=== PATIENT | female | born 1995 | race Caucasian/White ===

== ENCOUNTER → 2018-01-07 08:17 | Outpatient (POV) | payer BC, SELFPAY | PROVIDERS: Family Provider Family Medicine; PCP Family Medicine; Visit Provider Specialist | DX: R20.2 Paresthesia of skin (principal) | CPT/HCPCS: 95886; 95908 ==

== ENCOUNTER → 2018-10-07 10:08 | Outpatient (CLI) | payer BC, SELFPAY ==
--- NOTE | 2018-10-07 10:13 | US_ITS ---
US breast LT complete INDICATION: Intermittent nipple inversion with breast pain ORDERING PHYSICIAN: Mery Valdez PATIENT AGE: 22 years COMPARISON: None TECHNIQUE: Ultrasound of left breast completely with axilla FINDINGS: No cystic or solid lesions. There are a few small axillary nodes. IMPRESSION: No nodules apparent BI-RADS Category: 1 Negative Follow up suggested as clinically warranted. A- ultrasound does not exclude the possibility of malignancy. Any palpable nodule should be managed on a clinical basis (A letter has been sent to the patient regarding results of the study.)
== END ==
PROVIDERS: PCP Nurse Practitioner Family; Visit Provider Nurse Practitioner Family
DX: N64.4 Mastodynia (principal); N64.59 Other signs and symptoms in breast
CPT/HCPCS: 76641

== ENCOUNTER 2019-02-28 13:36 | Emergency (ER) | payer BC, SELFPAY ==
[2019-02-28 13:54] VITALS: BP 111/62; PULSE 60; RESP 18; TEMP 36.8; O2SAT 96; BMI 38.0
[2019-02-28 14:10] VITALS: BP 111/62; PULSE 60; RESP 18; TEMP 36.8; O2SAT 96; BMI 38.0
--- NOTE | 2019-02-28 14:18 | US_ITS ---
US gallbladder HISTORY: Abdominal pain with nausea ITS.REASON: pain ORDERING PHYSICIAN: Kwame Carlson MD PATIENT AGE: 23 years Comparison: 10/25/2016 FINDINGS: PANCREAS: Unremarkable. No obvious mass or abnormal fluid collection. No ductal dilatation LIVER: No focal liver lesions demonstrated. Homogeneous echogenicity. No intrahepatic biliary ductal dilatation evident RIGHT KIDNEY: Unremarkable. Normal size and echogenicity. No hydronephrosis GALLBLADDER: No gallstones, gallbladder wall thickening, pericholecystic fluid, or biliary dilatation. IMPRESSION: Negative gallbladder/right upper quadrant ultrasound
[2019-02-28 14:25] LABS: Microscopic, Urine URINE MICROSCOPIC (MICROSCOPIC)
[2019-02-28 14:34] LABS: Appearance,Urine CLEAR (Clear); Bilirubin,Urine Negative (Negative); Blood, Urine Negative (Negative); Color,Urine YELLOW (Yellow); Glucose,Urine (UA) Negative (Negative); Ketones,Urine Negative (Negative); Leukocyte Esterase,Urine 1+ (Negative); Nitrate,Urine Negative (Negative); PH,Urine 6.5 (5.0-8.5); Protein,Urine Negative (Negative); Specific Gravity, Urine 1.015 (1.005-1.030); Urobilinogen,Urine 0.2 EU/dl (0.2)
--- NOTE | 2019-02-28 14:35 | HMH.EDABDPAI ---
ED Disposition Clinical Impression: Abdominal pain Disposition: Home, Self-Care Condition on Discharge: Good Instructions: DI for Acute Abdomen Prescriptions: Esomeprazole Magnesium [Nexium] 40 mg PO DAILY 30 Days #30 capsule. Ondansetron HCl [Zofran 4mg Tab] 4 mg PO TID 3 Days #10 tab Referrals: Brian Baker MD [Primary Care Provider] - Time of Disposition: 15:24 - Critical Care Critical Care Time: No Attestation: On 02/28/19, the high probability of a clinically significant, sudden or life threatening deterioration of the following system(s) required my full and direct attention, intervention and personal management. The time I documented below is in addition to time spent performing reported procedures but includes the following listed in this critical care notation. Medical Decision Making - Medical Records Medical records reviewed: Yes: I reviewed the patient's medical records. - Zen Inquiry Pt receiving controlled substance: No Zen was queried for this patient: No Vital Signs: 02/28/19 13:54 02/28/19 14:10 02/28/19 14:45 Temperature 98.3 F 98.3 F Temperature Source Oral Oral Pulse Rate [Left Radial] 60 60 65 Respiratory Rate 18 18 Blood Pressure [Right Arm] 111/62 111/62 112/70 Blood Pressure Mean [Right Arm] 78 78 84 Blood Pressure Source [Right Arm] Automatic Cuff Automatic Cuff Blood Pressure Position [Right Arm] Sitting Sitting 02 Sat by Pulse Oximetry 96 96 100 Oxygen Delivery Method Room Air Room Air 02/28/19 15:16 Temperature Temperature Source Pulse Rate [Left Radial] 56 L Respiratory Rate 18 Blood Pressure [Right Arm] 107/66 L Blood Pressure Mean [Right Arm] 79 Blood Pressure Source [Right Arm] Automatic Cuff Blood Pressure Position [Right Arm] Supine 02 Sat by Pulse Oximetry 99 Oxygen Delivery Method Room Air - Lab Data Lab results reviewed: Yes: I reviewed the patient's lab results. Lab Results 02/28/19 14:15: Urine Color Yellow, Urine Appearance Clear, Urine pH 6.5, Ur Specific [place] 1.015, Urine Protein Negative, Urine Glucose (UA) Negative, Urine Ketones Negative, Urine Blood Negative, Urine Nitrate Negative, Urine Bilirubin Negative, Urine Urobilinogen 0.2, Ur Leukocyte Esterase 1+ A, Urine WBC Occasional, Ur Squamous Epith Cells 3-5, Urine Bacteria 2+, Urine Mucus 2+ 02/28/19 14:15: WBC 6.2, RBC 4.65, Hgb 13.5, Hct 41.3, MCV 88.7, MCH 28.9, MCHC 32.6, RDW 12.5, Plt Count 370, MPV 7.8, Neut % (Auto) 56.0, Lymph % (Auto) 35.7, [place] % (Auto) 5.5, Eos % (Auto) 2.5, Baso % (Auto) 0.4, Neut # (Auto) 3.5, Lymph # (Auto) 2.2, [place] # (Auto) 0.3, Eos # (Auto) 0.2, Baso # (Auto) 0.0 02/28/19 14:15: Sodium 140, Potassium 4.2, Chloride 105, Carbon Dioxide 26, Anion Gap 13.2, BUN 8, Creatinine 0.75, Estimated Creat Clear 181, Estimated GFR 97, Est GFR ( Amer) 117, Glucose 86, Calcium 8.7, Total Bilirubin 0.6, AST 19 D, ALT 30, Alkaline Phosphatase 69, Total Protein 7.5, Albumin 3.8, Globulin 3.7 H, Albumin/Globulin Ratio 1.0 L, Amylase 24 L, Lipase 100 02/28/19 14:15: Total Bilirubin 0.6, Direct Bilirubin 0.1, Indirect Bilirubin 0.5, AST 19, ALT 31, Alkaline Phosphatase 68, Total Protein 7.6, Albumin 3.7 Result diagrams: 02/28/19 14:15 02/28/19 14:15 Orders (Tests/Meds): ED MEDICATIONS Discontinued Medications Generic Name Dose Route Start Last Admin Trade Name [place] PRN Reason Stop Dose Admin Sodium Chloride 1,000 mls @ 999 mls/hr 02/28/19 14:15 02/28/19 15:19 Sod Chlor 0.9% 1000ml Bag IV 02/28/19 15:15 999 mls/hr .Q1H1M RACHEL Administration Ketorolac Tromethamine 30 mg 02/28/19 14:14 02/28/19 15:18 Toradol 30mg/Ml Vial IV 02/28/19 14:15 30 mg ONCE ONE Administration Ondansetron HCl 4 mg 02/28/19 14:14 02/28/19 15:18 Zofran 4mg/2ml Vial IV 02/28/19 14:15 4 mg ONCE ONE Administration ORDERS Category Date Time Status US gallbladder Stat Exams 02/28/19 14:18 Taken Urine Culture Stat Micro 02/28/19 14:15 Recei
[2019-02-28 14:37] LABS: Basophils % 0.4 % (0.1-2.0); Eosinophils # 0.2 K/mm3 (0.0-0.4); Eosinophils % 2.5 % (0.1-12.0); Hematocrit 41.3 % (37.0-47.0); Hemoglobin 13.5 g/dL (12.2-16.2); Lymphocytes # 2.2 K/mm3 (0.7-4.5); Lymphocytes % 35.7 % (10-50); Mean Corpuscular HGB Conc 32.6 g/dL (31.8-35.4); Mean Corpuscular Hemoglobin 28.9 pg (27.0-31.2); Mean Corpuscular Volume 88.7 fl (81-99); Mean Platelet Volume 7.8 fl (7.4-10.4); Monocytes # 0.3 K/mm3 (0.1-1.0); Monocytes % 5.5 % (1.7-9.3); Neutrophils # 3.5 K/mm3 (1.8-7.8); Platelet Count 370 K/mm3 (142-424); Red Blood Count 4.65 M/mm3 (4.20-5.40); Red Cell Distribution Width 12.5 % (11.5-17.5); White Blood Count 6.2 K/mm3 (4.8-10.8)
--- NOTE | 2019-02-28 14:38 | ED_ITS ---
ED Disposition Clinical Impression: Abdominal pain Disposition: Home, Self-Care Condition on Discharge: Good Instructions: DI for Acute Abdomen Prescriptions: Esomeprazole Magnesium [Nexium] 40 mg PO DAILY 30 Days #30 capsule. Ondansetron HCl [Zofran 4mg Tab] 4 mg PO TID 3 Days #10 tab Referrals: Brian Baker MD [Primary Care Provider] - Time of Disposition: 15:24 - Critical Care Critical Care Time: No Attestation: On 02/28/19, the high probability of a clinically significant, sudden or life threatening deterioration of the following system(s) required my full and direct attention, intervention and personal management. The time I documented below is in addition to time spent performing reported procedures but includes the following listed in this critical care notation. Medical Decision Making - Medical Records Medical records reviewed: Yes: I reviewed the patient's medical records. - Zen Inquiry Pt receiving controlled substance: No Zen was queried for this patient: No Vital Signs: 02/28/19 13:54 02/28/19 14:10 02/28/19 14:45 Temperature 98.3 F 98.3 F Temperature Source Oral Oral Pulse Rate [Left Radial] 60 60 65 Respiratory Rate 18 18 Blood Pressure [Right Arm] 111/62 111/62 112/70 Blood Pressure Mean [Right Arm] 78 78 84 Blood Pressure Source [Right Arm] Automatic Cuff Automatic Cuff Blood Pressure Position [Right Arm] Sitting Sitting 02 Sat by Pulse Oximetry 96 96 100 Oxygen Delivery Method Room Air Room Air 02/28/19 15:16 Temperature Temperature Source Pulse Rate [Left Radial] 56 L Respiratory Rate 18 Blood Pressure [Right Arm] 107/66 L Blood Pressure Mean [Right Arm] 79 Blood Pressure Source [Right Arm] Automatic Cuff Blood Pressure Position [Right Arm] Supine 02 Sat by Pulse Oximetry 99 Oxygen Delivery Method Room Air - Lab Data Lab results reviewed: Yes: I reviewed the patient's lab results. Lab Results 02/28/19 14:15: Urine Color Yellow, Urine Appearance Clear, Urine pH 6.5, Ur Specific [place] 1.015, Urine Protein Negative, Urine Glucose (UA) Negative, Urine Ketones Negative, Urine Blood Negative, Urine Nitrate Negative, Urine Bilirubin Negative, Urine Urobilinogen 0.2, Ur Leukocyte Esterase 1+ A, Urine WBC Occasional, Ur Squamous Epith Cells 3-5, Urine Bacteria 2+, Urine Mucus 2+ 02/28/19 14:15: WBC 6.2, RBC 4.65, Hgb 13.5, Hct 41.3, MCV 88.7, MCH 28.9, MCHC 32.6, RDW 12.5, Plt Count 370, MPV 7.8, Neut % (Auto) 56.0, Lymph % (Auto) 35.7, [place] % (Auto) 5.5, Eos % (Auto) 2.5, Baso % (Auto) 0.4, Neut # (Auto) 3.5, Lymph # (Auto) 2.2, [place] # (Auto) 0.3, Eos # (Auto) 0.2, Baso # (Auto) 0.0 02/28/19 14:15: Sodium 140, Potassium 4.2, Chloride 105, Carbon Dioxide 26, Anion Gap 13.2, BUN 8, Creatinine 0.75, Estimated Creat Clear 181, Estimated GFR 97, Est GFR ( Amer) 117, Glucose 86, Calcium 8.7, Total Bilirubin 0.6, AST 19 D, ALT 30, Alkaline Phosphatase 69, Total Protein 7.5, Albumin 3.8, Globulin 3.7 H, Albumin/Globulin Ratio 1.0 L, Amylase 24 L, Lipase 100 02/28/19 14:15: Total Bilirubin 0.6, Direct Bilirubin 0.1, Indirect Bilirubin 0.5, AST 19, ALT 31, Alkaline Phosphatase 68, Total Protein 7.6, Albumin 3.7 Result diagrams: 02/28/19 14:15 02/28/19 14:15 Orders (Tests/Meds):
[2019-02-28 14:45] VITALS: BP 112/70; PULSE 65; O2SAT 100
[2019-02-28 14:52] LABS: Alanine Aminotransferase 31 U/L (12-78); Albumin Level 3.7 gm/dL (3.4-5.0); Alkaline Phosphatase 68 U/L (46-116); Aspartate Amino Transferase 19 U/L (15-37); Bilirubin,Direct 0.1 mg/dL (0.0-0.2); Bilirubin,Indirect 0.5 mg/dL (0.0-0.9); Bilirubin,Total 0.6 mg/dL (0.2-1.0); Total Protein,Serum 7.6 gm/dL (6.4-8.2)
[2019-02-28 14:53] LABS: Alanine Aminotransferase 30 U/L (12-78); Albumin Level 3.8 gm/dL (3.4-5.0); Alkaline Phosphatase 69 U/L (46-116); Amylase 24 U/L (25-115); Anion Gap 13.2 mEq/L (5-15); Aspartate Amino Transferase 19 U/L (15-37); Bilirubin,Total 0.6 mg/dL (0.2-1.0); Blood Urea Nitrogen 8 mg/dL (7-18); Calcium 8.7 mg/dL (8.5-10.1); Carbon Dioxide 26 mmol/L (21.0-32.0); Chloride 105 mmol/L (98-107); Creatinine Clearance Estimated 181 mL/min (50-200); Creatinine,Serum 0.75 mg/dL (0.55-1.02); Estimated Glomerular Filt Rate 97 ml/min (>60); GFR (African American) 117 ML/MIN (>60); Globulin 3.7 gm/dl (1.3-3.2); Glucose 86 mg/dL (74-106); Lipase 100 u/L (73-393); Potassium 4.2 mmoL/L (3.5-5.1); Sodium 140 mmol/L (136-145); Total Protein,Serum 7.5 gm/dL (6.4-8.2)
[2019-02-28 15:04] LABS: Bacteria,Urine 2+ /lpf; Mucus,Urine 2+ /lpf
[2019-02-28 15:05] LABS: WBC,Urine Occasional #/hpf (0-3)
[2019-02-28 15:16] VITALS: BP 107/66; PULSE 56; RESP 18; O2SAT 99
[2019-02-28 16:04] VITALS: BP 101/62; PULSE 56; RESP 18; O2SAT 99
[2019-02-28 16:49] VITALS: BP 100/67; PULSE 58; RESP 18; TEMP 36.8; O2SAT 100
== END 2019-02-28 16:49 | disposition home or self-care (01) ==
PROVIDERS: Emergency Provider Emergency Medicine; PCP Family Medicine
DX: K29.70 Gastritis, unspecified, without bleeding (principal)
CPT/HCPCS: 76705; 80053; 80076; 81001; 82150; 83690; 85025; 87086; 96365; 96375; 99284; J2405

== ENCOUNTER → 2020-02-20 07:52 | Outpatient (CLI) | payer BC, SELFPAY ==
--- NOTE | 2020-02-20 07:58 | US_ITS ---
PROCEDURE: US ABDOMEN LIMITED CLINICAL INDICATION: ABD PAIN,ABD DISCOMFORT Right upper quadrant pain, nausea and diarrhea with vomiting COMPARISON: RUQ US RUQ-(ABD LTD)1ORGAN/QUAD/FU from 10/25/2016 FINDINGS: PANCREAS: Unremarkable. No obvious mass or abnormal fluid collection. No ductal dilatation LIVER: No focal liver lesions demonstrated. Homogeneous echogenicity. No intrahepatic biliary ductal dilatation evident. There is appropriate direction of blood flow within a non dilated portal vein RIGHT KIDNEY: Unremarkable. Normal size and echogenicity. No hydronephrosis GALLBLADDER: No gallstones, gallbladder wall thickening, pericholecystic fluid, or biliary dilatation. IMPRESSION: Unremarkable limited abdominal ultrasound as detailed above disc Dictated by: Jamshid Lujan MD 02/20/2020 09:36 Electronically signed by Jamshid Lujan MD in [place] 02/20/2020 09:36
== END ==
PROVIDERS: PCP Family Medicine; Visit Provider Nurse Practitioner
DX: R10.9 Unspecified abdominal pain (principal); R10.11 Right upper quadrant pain
CPT/HCPCS: 76705

== ENCOUNTER 2020-02-22 12:48 | Emergency (ER) | payer BC, SELFPAY ==
[2020-02-22 13:00] VITALS: BP 126/76; PULSE 91; RESP 16; TEMP 36.7; O2SAT 97; BMI 34.5
--- NOTE | 2020-02-22 13:05 | CT_ITS ---
PROCEDURE: CT ABDOMEN PELVIS WO CON CLINICAL INDICATION: RUQ PAIN, N/V Right upper quadrant pain with nausea and vomiting COMPARISON: No exams were available for comparison TECHNIQUE: Axial images obtained with sagittal and coronal reformats. All CT scans at the facility use one or more dose reduction, viz: automated exposure control, ma/kV adjustment per patient size (including targeted exams where dose is matched to indication, i.e. head), or iterative reconstruction technique. FINDINGS: LOWER THORAX: No acute finding ABDOMEN & PELVIS: The liver, spleen, adrenal glands, pancreas, and kidneys have an unremarkable appearance. No intestinal obstruction or free air. There is an appendicoliths which measures approximately 8 mm. No evidence of appendicitis. Low-density changes are present in the right adnexal region at 2.6 cm suggesting an ovarian cyst. No acute bony anomaly. There is scattered small mesenteric lymph nodes which are nonspecific. IMPRESSION: 1. No acute abdominal or pelvic findings. 2. Appendicoliths. No evidence of appendicitis Dictated by: Jamshid Lujan MD 02/22/2020 15:29 Electronically signed by Jamshid Lujan MD in [place] 02/22/2020 15:29
[2020-02-22 13:31] LABS: Basophils # 0.1 K/mm3 (0-0.2); Basophils % 0.9 % (0.1-2.0); Eosinophils # 0.1 K/mm3 (0.0-0.4); Eosinophils % 1.8 % (0.1-12.0); Hematocrit 39.7 % (37.0-47.0); Hemoglobin 13.5 g/dL (12.2-16.2); Lymphocytes # 1.5 K/mm3 (0.7-4.5); Mean Corpuscular Hemoglobin 31.6 pg (27.0-31.2); Mean Corpuscular Volume 92.8 fl (81-99); Mean Platelet Volume 8.7 fl (7.4-10.4); Monocytes # 0.3 K/mm3 (0.1-1.0); Monocytes % 3.6 % (1.7-9.3); Neutrophils # 5.3 K/mm3 (1.8-7.8); Neutrophils % 72.7 % (37.0-80.0); Platelet Count 339 K/mm3 (142-424); Red Blood Count 4.28 M/mm3 (4.20-5.40); Red Cell Distribution Width 13.1 % (11.5-17.5); White Blood Count 7.2 K/mm3 (4.8-10.8)
[2020-02-22 13:35] LABS: Chloride 110 mmol/L (98-107)
[2020-02-22 13:36] LABS: Potassium 3.9 mmoL/L (3.5-5.1); Sodium 140 mmol/L (136-145)
[2020-02-22 13:38] LABS: Alanine Aminotransferase 31 U/L (12-78); Amylase 36 U/L (30-110); Anion Gap 10.9 mEq/L (5-15); Aspartate Amino Transferase 22 U/L (14-36); Blood Urea Nitrogen 9 mg/dl (7-17); Carbon Dioxide 23 mmol/L (22.0-30.0); Creatinine Clearance Estimated 175 mL/min (50-200); Estimated Glomerular Filt Rate 104 ml/min (>60); GFR (African American) 125 ML/MIN (>60)
[2020-02-22 13:39] LABS: Albumin Level 3.9 g/dl (3.5-5.0); Albumin/Globulin Ratio 1.2 (1.1-1.8); Alkaline Phosphatase 52 U/L (38-126); Bilirubin,Total 0.5 mg/dl (0.2-1.3); Globulin 3.3 g/dL (1.3-3.2); Glucose 92 mg/dl (74-100); Lipase 45 U/L (23-300); Total Protein,Serum 7.2 g/dl (6.3-8.2)
[2020-02-22 13:39] LABS: Microscopic, Urine URINE MICROSCOPIC (MICROSCOPIC)
[2020-02-22 13:41] LABS: Appearance,Urine CLEAR (Clear); Bilirubin,Urine Negative (Negative); Blood, Urine Negative (Negative); Color,Urine YELLOW (Yellow); Glucose,Urine (UA) Negative (Negative); Ketones,Urine Negative (Negative); Leukocyte Esterase,Urine TRACE (Negative); Nitrate,Urine Negative (Negative); PH,Urine 6.5 (5.0-8.5); Protein,Urine Negative (Negative); Urobilinogen,Urine 0.2 EU/dl (0.2)
[2020-02-22 13:43] LABS: Urine Pregnancy, HCG Qual. Negative (Negative)
[2020-02-22 13:48] LABS: Amorphous Sediment,Urine 1+ /lpf; Bacteria,Urine 1+ /lpf; RBC,Urine Occasional #/hpf (0-3)
--- NOTE | 2020-02-22 14:33 | HMH.EDNVD ---
ED Disposition Clinical Impression: Abdominal pain Qualifiers: Abdominal location: right upper quadrant Qualified Code(s): R10.11 - Right upper quadrant pain Disposition: Home, Self-Care Condition on Discharge: Good Instructions: DI for Acute Abdomen Additional Instructions: fluids and see pcp for follow up Referrals: Brian Baker MD [Primary Care Provider] - Иван Sandoval MD [Staff Physician] - - Critical Care Critical Care Time: No Attestation: On 02/22/20, the high probability of a clinically significant, sudden or life threatening deterioration of the following system(s) required my full and direct attention, intervention and personal management. The time I documented below is in addition to time spent performing reported procedures but includes the following listed in this critical care notation. Medical Decision Making - Medical Records Medical records reviewed: Yes: I reviewed the patient's medical records. - Zen Inquiry Pt receiving controlled substance: No Vital Signs: 02/22/20 13:00 Temperature 98.1 F Temperature Source Oral Pulse Rate [Right Radial] 91 H Respiratory Rate 16 Blood Pressure [Right Arm] 126/76 Blood Pressure Mean [Right Arm] 92 Blood Pressure Source [Right Arm] Automatic Cuff Blood Pressure Position [Right Arm] Sitting 02 Sat by Pulse Oximetry 97 Oxygen Delivery Method Room Air - Lab Data Lab results reviewed: Yes: I reviewed the patient's lab results. Lab Results 02/22/20 13:25: WBC 7.2, RBC 4.28, Hgb 13.5, Hct 39.7, MCV 92.8, MCH 31.6 H, MCHC 34.0, RDW 13.1, Plt Count 339, MPV 8.7, Neut % (Auto) 72.7, Lymph % (Auto) 21.0, [place] % (Auto) 3.6, Eos % (Auto) 1.8, Baso % (Auto) 0.9, Neut # (Auto) 5.3, Lymph # (Auto) 1.5, [place] # (Auto) 0.3, Eos # (Auto) 0.1, Baso # (Auto) 0.1 02/22/20 13:25: Sodium 140, Potassium 3.9, Chloride 110 H, Carbon Dioxide 23, Anion Gap 10.9, BUN 9, Creatinine 0.70, Estimated Creat Clear 175, Estimated GFR 104, Est GFR ( Amer) 125, Glucose 92, Calcium 9.0, Total Bilirubin 0.5, AST 22, ALT 31, Alkaline Phosphatase 52, Total Protein 7.2, Albumin 3.9, Globulin 3.3 H, Albumin/Globulin Ratio 1.2, Amylase 36, Lipase 45 02/22/20 13:32: Urine HCG, Qual Negative 02/22/20 13:33: Urine Color Yellow, Urine Appearance Clear, Urine pH 6.5, Ur Specific [place] 1.020, Urine Protein Negative, Urine Glucose (UA) Negative, Urine Ketones Negative, Urine Blood Negative, Urine Nitrate Negative, Urine Bilirubin Negative, Urine Urobilinogen 0.2, Ur Leukocyte Esterase Trace, Urine RBC Occasional, Urine WBC 5-10, Ur Squamous Epith Cells 5-10, Amorphous Sediment 1+, Urine Bacteria 1+ Result diagrams: 02/22/20 13:25 02/22/20 13:25 Orders (Tests/Meds): ED MEDICATIONS Generic Name Dose Route Start Last Admin Trade Name Freq PRN Reason Stop Dose Admin Famotidine 20 mg 02/22/20 15:08 Pepcid 20mg/2ml Vial IV 02/22/20 15:09 ONCE ONE Morphine Sulfate 4 mg 02/22/20 15:08 Morphine 4mg/Ml Syringe IV 02/22/20 15:09 ONCE ONE Promethazine HCl 12.5 mg 02/22/20 15:08 Phenergan 25mg/Ml 1ml Vial IV 02/22/20 15:09 ONCE ONE Sodium Chloride 8 ml 02/22/20 15:08 Sodium Chloride 0.9% 10ml Vial IV 03/23/20 15:07 NEEDED PRN dilute pepcid Sodium Chloride 25 ml 02/22/20 15:08 Sod Chlor 0.9% 25ml Bag IV 02/22/20 15:09 ONCE ONE Discontinued Medications Generic Name Dose Route Start Last Admin Trade Name Freq PRN Reason Stop Dose Admin Sodium Chloride 1,000 mls @ 999 mls/hr 02/22/20 13:08 02/22/20 13:31 Sod Chlor 0.9% 1000ml Bag IV 02/22/20 14:08 999 mls/hr .Q1H1M ONE Administration Ketorolac Tromethamine 30 mg 02/22/20 13:07 02/22/20 13:30 Toradol 30mg/Ml Vial IV 02/22/20 13:08 30 mg ONCE ONE Administration Ondansetron HCl 4 mg 02/22/20 13:07 02/22/20 13:31 Zofran 4mg/2ml Vial IV 02/22/20 13:08 4 mg ONCE ONE Administration ORDERS Category Date Time Status CT abdomen p
[2020-02-22 15:37] VITALS: BP 122/87; PULSE 85; RESP 20; TEMP 36.7; O2SAT 98
== END 2020-02-22 15:43 | disposition home or self-care (01) ==
PROVIDERS: Emergency Provider Emergency Medicine; PCP Family Medicine
DX: R10.11 Right upper quadrant pain (principal); R11.2 Nausea with vomiting, unspecified
CPT/HCPCS: 74176; 80053; 81001; 81025; 82150; 83690; 85025; 96365; 96375; 99283; J2405

== ENCOUNTER 2023-08-28 17:24 | Emergency (ER) | payer BC, SELFPAY ==
[2023-08-28 17:50] VITALS: BP 120/70; PULSE 89; RESP 18; TEMP 37.4; O2SAT 100; BMI 37.4
--- NOTE | 2023-08-28 18:07 | EXP.UTC ---
Discharge Plan Disposition Patient Disposition: Home, Self-Care Condition: Good Prescriptions Prescriptions: New ondansetron 4 mg Tablet,Disintegrating 4 mg PO Q8H PRN (Reason: Nausea) Qty: 20 0RF Referrals Follow up/Referrals: Provider,Referral, [Primary Care Provider] - See instructions Activity Restrictions/Add. Instructions Additional Instructions/Restrictions: *Monitor Temp, Over the counter Motrin or Tylenol as directed/as needed Tylenol every 4 hours and Motrin every 6 hours (as long as your family doctor has told you that you can take it) for fever or pain. and straight to ER if unable to lower temp less than 101.0 after medication given *Warm salt water gargles may help to soothe the throat *Throat Lozenges? *Warm fluids like tea with honey may help to soothe the throat? *Sleep elevated *Humidifier/Vaporizer Your throat swab was sent for culture. Those results are typically sent to your primary care. Be sure to follow up in 2-3 days with your family doctor/primary care physician if no improvement so they can review those result and treat if necessary. If you don?t have a primary care doctor, I recommend you get one but in the mean time, you will have to return to a walk in clinic Follow up IMMEDIATELY for new or worsening symptoms or no Noticeable improvement over the next 48-72 hours. 911 for difficulty breathing or swallowing Make sure to increase fluids like gatoraid, pedialyte etc to keep hydrated Drink extra fluids with and between meals. If you have difficulty drinking, try very small amounts of water or suck on ice chips. ? Avoid fruit juices, as these do not replace minerals and can actually increase diarrhea. ? Children and adults can use sports drinks to replenish electrolytes. Younger children and infants should use products formulated for children, like oral rehydration solutions. ? Eat food in small amounts and let your stomach recover. ? Get lots of rest. You may feel tired or weak. ? No greasy or fried foods for the next 24-48 hours BRAT diet Bananas Rice Apples and [place] ? Make sure to drink plenty of liquids ? Return if needed ? Straight to ER if any life threatening symptoms ? Zofran as prescribed ? Follow up with family doctor in the next 48-72 hours if no improvement or any worsening of symptoms You were tested for today for COVID19 your test result should be back in the next 24hours, you may check your results on the [facility] [employer] [facility] if your COVID test is positive you must Quarantine for 5 days Clinical Impressions Clinical Impression: Viral syndrome Stand Alone Forms Stand Alone Forms: Work/School Release Instructions Patient Instructions: DI for Viral Syndrome, DI for Nausea -- Adult, Diarrhea Discharge ED Provider: Britney Beck [facility] [place] General Stated complaint: fever, nausea,cant eat or drink Mode of Arrival: Ambulatory Source of Information: Patient Limitations: No Limitations Time Seen by Provider: 08/28/23 18:00 Description of Symptoms (Recalled from Triage Doc. by RN): body aches, chills, and fatigue HEENT Symptoms (Recalled from RN notes): Yes Resp Symptoms (Recalled from RN notes): No Skin Symptoms (Recalled from RN notes): No MS Symptoms (Recalled from RN notes): No Functional Status (Recalled from RN notes): n/a History of Present Illness Provider Complaint: Patient states that she has been having body aches, chills and fatigue for several days and yesterday started with N/V/D States today she is feeling achy all over having flu like symptoms and nausea States this evening she was starting with achy like headache so she came in to get checked Related Data Previous Rx's Medication Instructions Recorded ondansetron 4 mg disintegrating 4 mg PO Q8H PRN Nausea #20 tabs 08/28/23 tablet Allergies Allergy/AdvReac Typ
[2023-08-28 18:17] LABS: UTC Influenza A Antigen Negative (Negative); UTC Influenza B Antigen Negative (Negative)
[2023-08-28 18:17] LABS: UTC Pregnancy Test, Urine Negative (Negative)
[2023-08-28 18:58] VITALS: BP 120/70; PULSE 89; RESP 18; TEMP 37.4; O2SAT 100
== END 2023-08-28 18:58 | disposition home or self-care (01) ==
PROVIDERS: Emergency Provider Nurse Practitioner
DX: R51.9 Headache, unspecified (principal); R11.2 Nausea with vomiting, unspecified; R50.9 Fever, unspecified; R19.7 Diarrhea, unspecified; R53.83 Other fatigue; B34.9 Viral infection, unspecified
CPT/HCPCS: 81025; 87635; 87804; 99204; 99212; G0463

== ENCOUNTER 2023-09-10 17:04 | Emergency (ER) | payer MEDICAID, SELFPAY ==
[2023-09-10 17:30] VITALS: BP 102/58; PULSE 80; RESP 18; TEMP 36.6; O2SAT 98; BMI 39.2
--- NOTE | 2023-09-10 17:37 | EXP.UTC ---
Discharge Plan Disposition Patient Disposition: Home, Self-Care Condition: Good Prescriptions Prescriptions: New [id number] [Bromfed DM] 2-30-10 mg/5 mL Syrup 10 ml PO Q4H PRN (Reason: Cough) Qty: 118 0RF methylprednisolone [Medrol (Yadiel)] 4 mg tablets,dose pack See Rx Instructions .Route .COMPLEX 6 Days Qty: 21 0RF Rx Instructions: taper pack; azithromycin [Zithromax Z-Yadiel] 250 mg tablet See Rx Instructions .ROUTE .COMPLEX 5 Days Qty: 6 0RF Rx Instructions: For 250 mg dose pack: take 500 mg today (day 1), then 250 mg for 4 days (days 2-5) Referrals Follow up/Referrals: Provider,Referral, MD [Primary Care Provider] - See instructions Activity Restrictions/Add. Instructions Additional Instructions/Restrictions: *Monitor Temp, Over the counter Motrin or Tylenol as directed/as needed Tylenol every 4 hours and Motrin every 6 hours (as long as your family doctor has told you that you can take it) for fever or pain. and straight to ER if unable to lower temp less than 101.0 after medication given *Warm salt water gargles may help to soothe the throat *Throat Lozenges? *Warm fluids like tea with honey may help to soothe the throat? *Sleep elevated *Humidifier/Vaporizer Follow up IMMEDIATELY for new or worsening symptoms or no Noticeable improvement over the next 48-72 hours. 911 for difficulty breathing or swallowing Clinical Impressions Clinical Impression: Sinusitis Qualifiers: Sinusitis location: unspecified location Chronicity: unspecified Qualified Code(s): J32.9 - Chronic sinusitis, unspecified Instructions Patient Instructions: Sinusitis, DI for Sinusitis Discharge ED Provider: Britney Beck [facility] General Stated complaint: vomiting, boady aches, fever Time Seen by Provider: 09/10/23 17:37 History of Present Illness Provider Complaint: Patient states that for the last couple of weeks she has been having sinus congestion and pressure, cough, body aches, chills, and vomiting States that she was seen a couple weeks ago and was dx with virus but not got any better so she came back in to get checked Related Data Previous Rx's Medication Instructions Recorded azithromycin 250 mg tablet See Rx Instructions PO .COMPLEX 5 09/10/23 (Zithromax Z-Yadiel) days #6 tabs [id number]-[id number] 10 ml PO Q4H PRN Cough #118 mL 09/10/23 2 mg-30 mg-10 mg/5 mL oral syrup (Bromfed DM) methylprednisolone 4 mg tablets in See Rx Instructions .Route 09/10/23 a dose pack (Medrol (Yadiel)) .COMPLEX 6 days #21 tabs Allergies Allergy/AdvReac Type Severity Reaction Status Date / Time No Known Allergies Allergy Verified 09/10/23 17:49 [facility] Disclaimer: The information contained in this section may have been updated after the patient was seen, as this information can be updated by other users. Social History Smoking Status: Never smoker alcohol intake: never current occupational status: other Travel in the last 8 weeks: None ROS Obtained: Yes All systems reviewed & no additional complaints except as documented and Yes Systems reviewed as appropriate & no additional complaints except as documented Constitutional Constitutional: Reports system reviewed and no additional complaints, except as documented, Reports as per HPI, Reports body ache, Reports fever(s) and Reports headache(s) ENT Ears, Nose, Mouth, and Throat: Reports system reviewed and no additional complaints, except as documented, Reports as per HPI, Reports headache(s), Reports nasal congestion and Reports nasal discharge Cardiovascular Cardiovascular: Reports system reviewed and no additional complaints, except as documented and Reports as per HPI Respiratory Respiratory: Reports system reviewed and no additional complaints, except as documented and Reports as per HPI Gastrointestinal Gastrointe
[2023-09-10 17:50] LABS: UTC Influenza A Antigen Negative (Negative); UTC Influenza B Antigen Negative (Negative)
[2023-09-10 18:10] VITALS: BP 102/58; PULSE 80; RESP 18; TEMP 36.6; O2SAT 98
== END 2023-09-10 18:10 | disposition home or self-care (01) ==
PROVIDERS: Emergency Provider Nurse Practitioner
DX: J01.90 Acute sinusitis, unspecified (principal); R51.9 Headache, unspecified; R50.9 Fever, unspecified; R11.2 Nausea with vomiting, unspecified; R09.81 Nasal congestion; M79.18 Myalgia, other site
CPT/HCPCS: 87804; 99212; 99214; G0463

== ENCOUNTER 2024-08-04 15:46 | Emergency (ER) | payer SELFPAY ==
[2024-08-04 16:10] VITALS: BP 124/69; PULSE 67; RESP 16; TEMP 36.8; O2SAT 100; BMI 38.9
--- NOTE | 2024-08-04 16:22 | EXP.UTC ---
Discharge Plan Disposition Patient Disposition: Home, Self-Care Condition: Good Prescriptions Prescriptions: No Action gwhqltdkfyrfmnc-qlpmtyvfq-MB [Bromfed DM] 2-30-10 mg/5 mL Syrup 10 ml PO Q4H PRN (Reason: Cough) Qty: 118 0RF methylprednisolone [Medrol (Yadiel)] 4 mg tablets,dose pack See Rx Instructions .Route .COMPLEX 6 Days Qty: 21 0RF Rx Instructions: taper pack; azithromycin [Zithromax Z-Yadiel] 250 mg tablet See Rx Instructions .ROUTE .COMPLEX 5 Days Qty: 6 0RF Rx Instructions: For 250 mg dose pack: take 500 mg today (day 1), then 250 mg for 4 days (days 2-5) Referrals Follow up/Referrals: Provider,Referral, MD [Primary Care Provider] - See instructions Activity Restrictions/Add. Instructions Additional Instructions/Restrictions: Follow up with your Family Doctor if no improvement or any worsening of symptoms Straight to ER if pain in right lower abdomen returns or get worse Return if needed Warm compresses in area may help with swollen lymph nodes Avoid shaving the area until better Clinical Impressions Clinical Impression: Swelling of lymph nodes Instructions Patient Instructions: Ibuprofen Print Language Print Language: Kazakh Discharge ED Provider: Britney Bcek [facility] [place] HPI General Stated complaint: Lump in private area,painful,no bleeding Mode of Arrival: Ambulatory Source of Information: Patient Limitations: No Limitations Time Seen by Provider: 08/04/24 16:22 Description of Symptoms (Recalled from Triage Doc. by RN): Complaint of tenderness and lump in lower pelvic area. Pain radiating into back. HEENT Symptoms (Recalled from RN notes): No Resp Symptoms (Recalled from RN notes): No Skin Symptoms (Recalled from RN notes): Yes MS Symptoms (Recalled from RN notes): No Functional Status (Recalled from RN notes): wnl History of Present Illness Provider Complaint: Patient states that she was rubbing in her groin area last night and felt a lump not sure if it is a cyst or swollen lymph node or what it may be States she thought she may have been having some cramping also since she just got off her period that was radiating into her back States today she was worried about the hard area she felt in her groin Related Data Previous Rx's ?Medication ?Instructions ?Recorded azithromycin 250 mg tablet See Rx Instructions PO .COMPLEX 5 09/10/23 (Zithromax Z-Yadiel) days #6 tabs upxwtkxwcnbbysa-xayswmsrubvvssw-BT 10 ml PO Q4H PRN Cough #118 mL 09/10/23 2 mg-30 mg-10 mg/5 mL oral syrup (Bromfed DM) methylprednisolone 4 mg tablets in See Rx Instructions .Route 09/10/23 a dose pack (Medrol (Yadiel)) .COMPLEX 6 days #21 tabs Allergies Allergy/AdvReac Type Severity Reaction Status Date / Time No Known Allergies Allergy Verified 09/10/23 17:49 Worker's Comp Is this a Worker's Comp case?: No PFSH PFS Disclaimer: The information contained in this section may have been updated after the patient was seen, as this information can be updated by other users. Social History Smoking Status: Never smoker alcohol intake: never current occupational status: other Travel in the last 8 weeks: None ROS Obtained: Yes All systems reviewed & no additional complaints except as documented and Yes Systems reviewed as appropriate & no additional complaints except as documented Constitutional Constitutional: Reports system reviewed and no additional complaints, except as documented and Reports as per HPI ENT Ears, Nose, Mouth, and Throat: Reports system reviewed and no additional complaints, except as documented and Reports as per HPI Cardiovascular Cardiovascular: Reports system reviewed and no additional complaints, except as documented and Reports as per HPI Respiratory Respiratory: Reports system reviewed and no additional complaints, except as documented and Reports as per HPI Gastrointestinal Gastrointestingal: Reports system reviewed and no additional complaints, except as documented, as per HPI and cramping Genitourinary Female Genitourinary: Reports system reviewed and no additional complaints, except as documented, Reports as per HPI, Denies dysuria, Denies urinary frequency and Denies urinary urgency Musculoskeletal Musculoskeletal: Reports system reviewed and no additional complaints, except as documented and Reports as per HPI Integumentary/Breasts Skin/Breast: Reports system reviewed and no additional complaints, except as documented, Reports as per HPI and Reports other Comments: felt lump/knot' in right groin area Neurologic Neurologic: Reports system reviewed and no additional complaints, except as documented and Reports as per HPI Physical Exam General General appearance: alert and in no apparent distress ENT ENT exam: Present normal exam, normal oropharynx, mucous membranes moist and TM's normal bilaterally Respiratory Respiratory exam: Present normal lung sounds bilaterally; Absent respiratory distress or wheezes Cardiovascular Cardiovascular exam: Present regular rate, normal rhythm and normal heart sounds Abdominal Exam Abdominal exam: Present soft and normal bowel sounds; Absent distention, tenderness, guarding or rebound External exam: Present other (patients shaves area, felt small round moveable hard area appears like lymph node that patient advised is what she felt and tender, no redness no swelling no drainage ) Back Exam Back exam: Present normal inspection and full ROM Neurological Exam Neurological exam: Present alert, oriented X3 and normal gait Medical Decision Making Medical Records Screening: Per USPSTF and CDC recommendations, given the prevalence of disease in our region, it is our hospital?s policy to screen for HIV and viral Hepatitis for all patients aged 18 and over and those with ongoing risk factors. Zen Inquiry Pt receiving controlled substance: No Zen was queried for this patient: No Vital Signs: 08/04/24 16:10 Temperature 98.2 F Temperature Source Oral Pulse Rate [Radial] 67 Respiratory Rate 16 Blood Pressure [Right Arm] 124/69 Blood Pressure Mean [Right Arm] 87 Blood Pressure Source [Right Arm] Automatic Cuff Blood Pressure Position [Right Arm] Sitting 02 Sat by Pulse Oximetry 100 Oxygen Delivery Method Room Air Medical Decision Narrative: Pt reports that she was having crampy like feeling last night in her right lower abdomen that felt like it went into her back last night better today and small hard tender lump in her right groin Discussed with patient about doing a UA to see if she may have a UTI and/or Transfer to the ED for pain/cramping in her right lower abdomen concern for appendicitis/ ovarian cyst and patient declined states that she will follow up with PCP if pain returns/persists patient aware of risks and still declined transfer Patient educated to watch right groin area and if 'lump' gets larger or starts to have redness follow up immediately and she agreed
[2024-08-04 16:35] VITALS: BP 124/69; PULSE 67; RESP 16; TEMP 36.8; O2SAT 100
== END 2024-08-04 16:36 | disposition home or self-care (01) ==
PROVIDERS: Emergency Provider Nurse Practitioner
DX: R59.0 Localized enlarged lymph nodes (principal); R10.2 Pelvic and perineal pain
CPT/HCPCS: 99212; G0381